=== PATIENT | female | born 1970 | race Caucasian/White ===

== ENCOUNTER 2016-11-22 09:42 | Inpatient (IN) | payer BC ==
[~2016-11-22] VITALS: Ht 162.6 cm; Wt 52.3 kg
[~2016-11-22 09:42] MED LIST: FERR325T PO
[2016-11-22] MEDS ORDERED: SODIUM CHLORIDE 0.9% 1,000 ML IV ONE (09:52)
[2016-11-22] MEDS ORDERED: PANTOPRAZOLE SODIUM 40 MG/10 ML VIAL IV STA (10:25)
[2016-11-22] MEDS ORDERED: HYDROmorphone HCL 2 MG/ML VL IV ONE (10:30)
[2016-11-22] MEDS ORDERED: ONDANSETRON HCL 4 MG/2 ML VIAL IV ONE (10:30)
[2016-11-22 11:19] LABS: Basophils # (auto) 0 uL; Basophils % (auto) 0.4 % (0.0-2.0); DEFINITIVE VIEW TRANSMISSION; Eosinophils # (auto) 0.1 uL; Eosinophils % (auto) 0.7 % (0.0-7.0); Hemoglobin 11.8 g/dL (12.2-16.2); Lymphocytes # (auto) 1.1 uL; Lymphocytes % (auto) 13.6 % (10.0-50.0); Mean Corpuscular Hemoglobin 30.9 pg (28.0-32.0); Mean Corpuscular Hgb Conc. 32.8 g/dL (32.0-36.0); Mean Corpuscular Volume 94.4 fL (80.0-100.0); Mean Platelet Volume 8.1 fL (7.4-10.4); Monocytes % (auto) 12.4 % (0.0-12.0); Neutrophils % (auto) 72.9 % (37.0-80.0); Platelet Count (auto) 277 10^3/uL (140-450); SUSPECT VIEW TRANSMISSION; White Blood Cell 8.3 10^3/uL (4.4-10.8)
[2016-11-22 11:22] LABS: Partial Thromboplastin Time 31.5 sec (22.64-33.71); Prothrombin Time 12.2 sec (9.37-12.3)
[2016-11-22 11:25] LABS: Red Cell Distribution Width 24.7 % (11.6-16.0)
[2016-11-22 11:32] LABS: Amylase 57 U/L (25-115)
[2016-11-22 11:37] LABS: Albumin 3.7 g/dL (3.4-5.0); BUN/Creatinine Ratio 25.5; Bilirubin, Total 1.8 mg/dL (0.2-1.0); Total Protein 8.1 g/dL (6.4-8.2)
[2016-11-22 11:44] LABS: INR 1.18 (0.9-1.15)
[2016-11-22 11:55] LABS: Platelet Estimate Adequate
[2016-11-22 11:56] LABS: Anisocytosis Slight
[2016-11-22 11:57] LABS: Potassium 2.8 mmol/L (3.5-5.1)
[2016-11-22] MEDS ORDERED: POTASSIUM CHL 20MEQ/100ML 100 ML IV ONE (12:15)
[2016-11-22] MEDS ORDERED: NITROGLYCERIN 0.4 MG SL TAB SL PRN (14:15)
[2016-11-22] MEDS ORDERED: PANTOPRAZOLE SODIUM 40 MG/10 ML VIAL IV ONE (14:15)
[2016-11-22] MEDS ORDERED: MORPHINE SULF INJ 2 MG/ML SYRINGE 1ML IV PRN (14:15)
[2016-11-22] MEDS ORDERED: HYDROcodone-ACET 5/325MG TAB PO PRN (14:15)
[2016-11-22] MEDS: SOD CHL 0.9%/ KCL 20MEQ 1,000 ML IV SCH ×2 (14:16→14:36)
[2016-11-22] MEDS ORDERED: POTASSIUM CHLORIDE 40 MEQ, LIDOCAINE 1% (LOCAL ANESTH.) 4 ML in SODIUM CHL 0.9% 250 ML IV ONE (14:45)
[2016-11-22 17:00] VITALS: BP 119/78
[2016-11-22] MEDS: ONDANSETRON HCL 4 MG/2 ML VIAL IV PRN (17:52)
[2016-11-22] MEDS: MORPHINE SULF INJ 2 MG/ML SYRINGE 1ML IV PRN (17:52)
[2016-11-22 20:23] LABS: Urine RBC None Seen /hpf (0 - 4)
[2016-11-22 20:55] LABS: Urine Blood Negative /uL (Negative); Urine Color Yellow (Yellow); Urine Glucose Normal (Normal); Urine Mucus MODERATE (None Seen); Urine Nitrite Negative (Negative); Urine Squamous Epithelial Cell FEW /hpf (<5); Urine Urobilinogen >12.0 mg/dL (Negative)
[2016-11-22 21:16] LABS: Urine Bilirubin Negative (Negative); Urine Ketone 3+ (Negative)
[2016-11-22] MEDS: PANTOPRAZOLE 40 MG TAB PO SCH (21:30)
[2016-11-22 22:11] VITALS: BP 100/72
[2016-11-23] MEDS: MORPHINE SULF INJ 2 MG/ML SYRINGE 1ML IV PRN ×2 (04:15→19:36)
[2016-11-23] MEDS: ONDANSETRON HCL 4 MG/2 ML VIAL IV PRN ×3 (04:24→19:35)
[2016-11-23] MEDS: SOD CHL 0.9%/ KCL 20MEQ 1,000 ML IV SCH ×2 (04:25→20:15)
[2016-11-23 05:03] VITALS: BP 114/79
[2016-11-23 06:21] LABS: BUN/Creatinine Ratio 15.4; Calcium 7.7 mg/dL (8.5-10.1); Magnesium 1.8 mg/dL (1.6-2.6); Potassium 3.8 mmol/L (3.5-5.1)
[2016-11-23 08:00] VITALS: BP 123/83
[2016-11-23 08:30] VITALS: BP 123/83
[2016-11-23] MEDS ORDERED: SODIUM CHLORIDE LOCK 10 ML ONE (08:37)
[2016-11-23] MEDS ORDERED: LIDOCAINE VISCOUS 2% 15ML UD ONE (08:37)
[2016-11-23] MEDS ORDERED: diphenhdrAMINE HCL 50 MG/1 ML VL ONE (08:37)
[2016-11-23] MEDS: PANTOPRAZOLE 40 MG TAB PO SCH ×2 (09:51→21:16)
[2016-11-23] MEDS ORDERED: PANTOPRAZOLE SODIUM 40 MG/10 ML VIAL IV SCH (10:00)
[2016-11-23] MEDS ORDERED: LEVOTHYROXINE SODIUM 100 MCG TAB PO ONE (11:45)
[2016-11-23 12:30] VITALS: BP 120/84
[2016-11-23] MEDS: MIDAZOLAM HCL 5 MG/ML-1ML VIAL ONE ×3 (12:55→13:00)
[2016-11-23] MEDS: fentaNYL CITRATE 100 MCG/2 ML VL ONE ×3 (12:55→13:00)
[2016-11-23 16:53] VITALS: BP 117/78
[2016-11-23] MEDS: ALPRAZolam 0.25 MG TAB PO SCH (21:16)
[2016-11-23 21:56] VITALS: BP 96/61
[2016-11-24] MEDS: SOD CHL 0.9%/ KCL 20MEQ 1,000 ML IV SCH (03:09)
[2016-11-24] MEDS: MORPHINE SULF INJ 2 MG/ML SYRINGE 1ML IV PRN (03:10)
[2016-11-24] MEDS: ONDANSETRON HCL 4 MG/2 ML VIAL IV PRN (03:10)
[2016-11-24 05:32] VITALS: BP 95/64
[2016-11-24] MEDS ORDERED: LEVOTHYROXINE SODIUM 100 MCG TAB PO SCH (07:00)
[2016-11-24 08:00] VITALS: BP 106/70
[2016-11-24 08:30] VITALS: BP 106/70
[2016-11-24] MEDS: ALPRAZolam 0.25 MG TAB PO SCH (09:53)
[2016-11-24] MEDS: PANTOPRAZOLE 40 MG TAB PO SCH (09:53)
[2016-11-24 12:30] VITALS: BP 99/72
== END 2016-11-24 13:45 | disposition home or self-care (01) | DRG 392 ==
LOC: ER 09:42 → TELE-E-ADS 09:43 → TELE-WESTW 18:00
PROVIDERS: ADMIT Internal Medicine; ATTEND Internal Medicine
PROC: 0DB68ZX Excision of Stomach, Via Natural or Artificial Opening Endoscopic, Diagnostic (ICD-10-PCS; principal; 2016-11-23 12:52)
DX: K29.60 Other gastritis without bleeding (principal); E03.9 Hypothyroidism, unspecified; F32.9 Major depressive disorder, single episode, unspecified; E86.0 Dehydration; K21.0 Gastro-esophageal reflux disease with esophagitis; E87.6 Hypokalemia; Z83.3 Family history of diabetes mellitus; Z90.49 Acquired absence of other specified parts of digestive tract; Z90.710 Acquired absence of both cervix and uterus; Z98.890 Other specified postprocedural states; Z79.899 Other long term (current) drug therapy
CPT/HCPCS: 36415; 43239; 80048; 80053; 81001; 81025; 82010; 82150; 83690; 83735; 84443; 85025; 85610; 85730; 94761; 96361; 96374; 96375; C9113; J2001; J2250; J2405; J3480

== ENCOUNTER → 2017-02-03 | Outpatient (CLI) | payer BC ==
[2017-02-03 12:46] LABS: Basophils # (auto) 0.1 uL; Basophils % (auto) 1.1 % (0.0-2.0); DEFINITIVE VIEW TRANSMISSION; Eosinophils # (auto) 0.1 uL; Eosinophils % (auto) 1.8 % (0.0-7.0); Hematocrit 33.3 % (36.0-46.0); Hemoglobin 11.1 g/dL (12.2-16.2); Lymphocytes # (auto) 1.4 uL; Lymphocytes % (auto) 17.9 % (10.0-50.0); Mean Corpuscular Hgb Conc. 33.4 g/dL (32.0-36.0); Mean Corpuscular Volume 98.8 fL (80.0-100.0); Mean Platelet Volume 7.2 fL (7.4-10.4); Monocytes # (auto) 0.8 uL; Monocytes % (auto) 9.8 % (0.0-12.0); Neutrophils # (auto) 5.4 uL; Neutrophils % (auto) 69.4 % (37.0-80.0); Platelet Count (auto) 254 10^3/uL (140-450); White Blood Cell 7.8 10^3/uL (4.4-10.8)
[2017-02-03 12:49] LABS: Red Cell Distribution Width 23.8 % (11.6-16.0)
[2017-02-03 12:52] LABS: Urine Blood Negative /uL (Negative); Urine Color Yellow (Yellow); Urine Glucose Normal (Normal); Urine Mucus MODERATE (None Seen); Urine Nitrite Negative (Negative); Urine RBC 1 /hpf (0 - 4); Urine Squamous Epithelial Cell FEW /hpf (<5)
[2017-02-03 13:15] LABS: Albumin 3.9 g/dL (3.4-5.0); BUN/Creatinine Ratio 19.6; Bilirubin, Total 1.4 mg/dL (0.2-1.0); Calcium 8.6 mg/dL (8.5-10.1); Potassium 3.9 mmol/L (3.5-5.1); Total Protein 7.9 g/dL (6.4-8.2)
[2017-02-03 13:33] LABS: Urine Bilirubin Negative (Negative); Urine Ketone 1+ (Negative)
[2017-02-03 15:08] LABS: Anisocytosis Slight
[2017-02-03 15:09] LABS: Platelet Estimate Adequate
== END | disposition home or self-care (01) ==
LOC: LAB 12:25
PROVIDERS: ATTEND Family Medicine
DX: K29.50 Unspecified chronic gastritis without bleeding (principal)
CPT/HCPCS: 36415; 80053; 80061; 81001; 83540; 83550; 84443; 85025

== ENCOUNTER → 2017-04-07 | Outpatient (CLI) | payer BC ==
[2017-04-07 12:52] LABS: Basophils # (auto) 0 uL; Basophils % (auto) 0.6 % (0.0-2.0); CONDITION Y; DEFINITIVE SEE PRINTOUT; Eosinophils # (auto) 0 uL; Eosinophils % (auto) 0.9 % (0.0-7.0); Hemoglobin 11.1 g/dL (12.2-16.2); Lymphocytes # (auto) 0.7 uL; Lymphocytes % (auto) 14.9 % (10.0-50.0); Mean Corpuscular Hemoglobin 35.2 pg (28.0-32.0); Mean Corpuscular Hgb Conc. 33.8 g/dL (32.0-36.0); Mean Platelet Volume 8.4 fL (7.4-10.4); Monocytes # (auto) 0.4 uL; Monocytes % (auto) 8.9 % (0.0-12.0); Neutrophils # (auto) 3.5 uL; Neutrophils % (auto) 74.7 % (37.0-80.0); Platelet Count (auto) 101 10^3/uL (140-450); White Blood Cell 4.6 10^3/uL (4.4-10.8)
[2017-04-07 13:03] LABS: INR 1.13 (0.9-1.15); Prothrombin Time 12.3 sec (9.37-12.3)
[2017-04-07 13:17] LABS: Albumin 3.8 g/dL (3.4-5.0); BUN/Creatinine Ratio 16.3; Bilirubin, Total 2.6 mg/dL (0.2-1.0); Calcium 8.3 mg/dL (8.5-10.1); Potassium 3.2 mmol/L (3.5-5.1); Total Protein 7.9 g/dL (6.4-8.2)
[2017-04-07 13:55] LABS: Anisocytosis Slight; Macrocytosis Slight; Platelet Estimate Adequate
== END | disposition home or self-care (01) ==
LOC: LAB 12:31
PROVIDERS: ATTEND Nurse Practitioner
DX: K74.60 Unspecified cirrhosis of liver (principal)
CPT/HCPCS: 36415; 80053; 82270; 85025; 85610

== ENCOUNTER 2017-05-06 05:55 | Inpatient (IN) | payer BC ==
[~2017-05-06] VITALS: Ht 162.6 cm; Wt 42.6 kg
[2017-05-06] MEDS ORDERED: SODIUM CHLORIDE 0.9% 1,000 ML IV ONE (06:30)
[2017-05-06] MEDS ORDERED: ONDANSETRON HCL 4 MG/2 ML VIAL IV ONE (06:30)
[2017-05-06 06:50] LABS: Basophils # (auto) 0.1 uL; Basophils % (auto) 1.2 % (0.0-2.0); Eosinophils # (auto) 0.1 uL; Eosinophils % (auto) 1.6 % (0.0-7.0); Hematocrit 30.2 % (36.0-46.0); Hemoglobin 10.5 g/dL (12.2-16.2); Lymphocytes # (auto) 1.2 uL; Lymphocytes % (auto) 16.3 % (10.0-50.0); Mean Corpuscular Hemoglobin 40.1 pg (28.0-32.0); Mean Corpuscular Hgb Conc. 34.6 g/dL (32.0-36.0); Mean Corpuscular Volume 115.8 fL (80.0-100.0); Mean Platelet Volume 8.1 fL (7.4-10.4); Monocytes # (auto) 0.4 uL; Monocytes % (auto) 6.1 % (0.0-12.0); Neutrophils # (auto) 5.4 uL; Neutrophils % (auto) 74.8 % (37.0-80.0); Nucleated Red Blood Cells % 0.2 %; Platelet Count (auto) 67 10^3/uL (140-450); White Blood Cell 7.2 10^3/uL (4.4-10.8)
[2017-05-06 06:58] LABS: Red Cell Distribution Width 23.1 % (11.6-16.0)
[2017-05-06 07:10] LABS: Albumin 2.7 g/dL (3.4-5.0); Anion Gap 14 (5-15); Aspartate Aminotransferase 215 U/L (15-37); BUN/Creatinine Ratio 15.6; Blood Urea Nitrogen 5 mg/dL (7-18); Calcium 8.2 mg/dL (8.5-10.1); Carbon Dioxide 20 mmol/L (21-32); Chloride 104 mmol/L (98-107); GFR African American 287 mL/min; GFR Non-African American 237 mL/min; Glucose 102 mg/dL (74-106); Magnesium 1.9 mg/dL (1.6-2.6); Potassium 3.3 mmol/L (3.5-5.1); Sodium 138 mmol/L (136-145)
[2017-05-06 07:15] LABS: Alkaline Phosphatase 305 U/L (45-117); Bilirubin, Total 9.2 mg/dL (0.2-1.0)
[2017-05-06 08:04] LABS: Anisocytosis Slight; Macrocytosis Marked; Platelet Estimate Decreased
[2017-05-06] MEDS ORDERED: POTASSIUM CHL 10% (20 MEQ/15ML) 15ml ORAL SOLN PO ONE (08:30)
[2017-05-06] MEDS ORDERED: FERROUS SULFATE 300 MG/5 ML ORAL LIQ GT ONE (08:30)
[2017-05-06 08:32] LABS: Urine Blood Negative /uL (Negative); Urine Color Yellow (Yellow); Urine Glucose Normal (Normal); Urine Ketone 2+ (Negative); Urine Mucus FEW (None Seen); Urine Nitrite Negative (Negative); Urine RBC <1 /hpf (0 - 4); Urine Squamous Epithelial Cell FEW /hpf (<5)
[2017-05-06 08:34] LABS: Urine Bilirubin 2+ (Negative)
[2017-05-06] MEDS ORDERED: SODIUM CHLORIDE 0.9% 1,000 ML IV SCH (09:23)
[2017-05-06] MEDS ORDERED: TEMAZEPAM 15 MG CAP PO PRN (09:30)
[2017-05-06] MEDS ORDERED: chlordiazePOXIDE HCL 5 MG CAP PO PRN (09:30)
[2017-05-06] MEDS ORDERED: cefTRIAXone 1GM/50ML D5W 50 ML IV ONE (09:30)
[2017-05-06] MEDS ORDERED: MORPHINE SULFATE 4 MG/ML SYRG IV PRN (09:30)
[2017-05-06] MEDS ORDERED: NITROGLYCERIN 0.4 MG SL TAB SL PRN (09:30)
[2017-05-06] MEDS ORDERED: LACTULOSE 20Gm/30ML SOLN PO PRN (09:30)
[2017-05-06] MEDS ORDERED: THIAMINE HCL 100 MG/ML 2ML VIAL IV ONE (09:30)
[2017-05-06] MEDS ORDERED: MORPHINE SULF INJ 2 MG/ML SYRINGE 1ML IV PRN (09:30)
[2017-05-06] MEDS ORDERED: PANTOPRAZOLE 40 MG TAB PO SCH ×2 (10:00→22:00)
[2017-05-06] MEDS ORDERED: ENOXAPARIN SOD 40 MG/0.4 ML SYRINGE SC SCH (10:00)
[2017-05-06] MEDS ORDERED: ENOXAPARIN SOD 30 MG/0.3 ML SYRINGE SC SCH (10:00)
[2017-05-06] MEDS: PROMETHAZINE HCL 25 MG/ML 1ML IV PRN ×3 (11:07→20:50)
[2017-05-06 12:02] LABS: INR 1.22 (0.9-1.15); Partial Thromboplastin Time 32.5 sec (22.64-33.71); Prothrombin Time 13.3 sec (9.37-12.3)
[2017-05-06] MEDS ORDERED: ONDA4TAB5 PO (13:23)
[2017-05-06] MEDS ORDERED: LEVO125T66 PO (13:23)
[2017-05-06 13:24] VITALS: BP 106/67
[2017-05-06 13:27] LABS: Hematocrit 27.9 % (36.0-46.0); Hemoglobin 9.4 g/dL (12.2-16.2)
[2017-05-06] MEDS ORDERED: IOHEXOL 300 MG/ML 100ML BOTTLE IJ ONE (15:05)
[2017-05-06 16:47] VITALS: BP 107/65
[2017-05-06] MEDS: SODIUM CHLORIDE 0.9% 1,000 ML IV SCH (18:50)
[2017-05-06 20:00] VITALS: BP 103/66
[2017-05-06] MEDS: PANTOPRAZOLE 40 MG/10 ML VIAL IV SCH (22:00)
[2017-05-06] MEDS: metroNIDAZOLE 500MG/100ML 100 ML IV SCH (22:00)
[2017-05-07 01:52] LABS: Hematocrit 25.5 % (36.0-46.0); Hemoglobin 8.6 g/dL (12.2-16.2)
[2017-05-07] MEDS: SODIUM CHLORIDE 0.9% 1,000 ML IV SCH ×4 (04:45→21:30)
[2017-05-07 04:47] VITALS: BP 106/66
[2017-05-07 05:31] LABS: Basophils # (auto) 0.1 uL; Basophils % (auto) 1.1 % (0.0-2.0); Eosinophils # (auto) 0 uL; Eosinophils % (auto) 0.5 % (0.0-7.0); Hematocrit 24.1 % (36.0-46.0); Hemoglobin 8.4 g/dL (12.2-16.2); Lymphocytes % (auto) 15.7 % (10.0-50.0); Mean Corpuscular Hemoglobin 41.3 pg (28.0-32.0); Mean Corpuscular Volume 117.9 fL (80.0-100.0); Mean Platelet Volume 8.8 fL (7.4-10.4); Monocytes # (auto) 0.5 uL; Monocytes % (auto) 7.6 % (0.0-12.0); Neutrophils # (auto) 4.8 uL; Neutrophils % (auto) 75.1 % (37.0-80.0); Nucleated Red Blood Cells % 0.3 %; Platelet Count (auto) 50 10^3/uL (140-450); White Blood Cell 6.4 10^3/uL (4.4-10.8)
[2017-05-07 05:50] LABS: INR 1.34 (0.9-1.15); Partial Thromboplastin Time 33.5 sec (22.64-33.71); Prothrombin Time 14.7 sec (9.37-12.3)
[2017-05-07] MEDS: metroNIDAZOLE 500MG/100ML 100 ML IV SCH ×3 (05:59→21:57)
[2017-05-07] MEDS: PROMETHAZINE HCL 25 MG/ML 1ML IV PRN (05:59)
[2017-05-07 06:09] LABS: Albumin 2.1 g/dL (3.4-5.0); BUN/Creatinine Ratio 6.7; Bilirubin, Total 11.2 mg/dL (0.2-1.0); Calcium 6.8 mg/dL (8.5-10.1); Total Protein 5.7 g/dL (6.4-8.2)
[2017-05-07 06:12] LABS: Potassium 2.7 mmol/L (3.5-5.1)
[2017-05-07 06:27] LABS: Red Cell Distribution Width 21.8 % (11.6-16.0)
[2017-05-07] MEDS: MORPHINE SULF INJ 2 MG/ML SYRINGE 1ML IV PRN ×3 (08:01→17:31)
[2017-05-07 08:24] LABS: Anisocytosis Slight; Macrocytosis Slight; Platelet Estimate Decreased; Tear Drop Cells FEW
[2017-05-07] MEDS ORDERED: cefTRIAXone 1GM/50ML D5W 50 ML IV SCH (09:00)
[2017-05-07] MEDS: PANTOPRAZOLE 40 MG/10 ML VIAL IV SCH ×2 (09:18→21:57)
[2017-05-07] MEDS: cefTRIAXone 1GM/50ML D5W 50 ML IV SCH (09:18)
[2017-05-07] MEDS: THIAMINE HCL 100 MG/ML 2ML VIAL IV SCH (09:19)
[2017-05-07 09:23] VITALS: BP 100/65
[2017-05-07] MEDS ORDERED: POTASSIUM CHLORIDE 40 MEQ, LIDOCAINE 1% (LOCAL ANESTH.) 4 ML in SODIUM CHL 0.9% 250 ML IV ONE (10:15)
[2017-05-07 11:27] LABS: Hematocrit 23.6 % (36.0-46.0); Hemoglobin 8.2 g/dL (12.2-16.2)
[2017-05-07 12:43] VITALS: BP 94/61
[2017-05-07 16:43] VITALS: BP 99/60
[2017-05-07 21:37] VITALS: BP 99/62
[2017-05-08] MEDS: SODIUM CHLORIDE 0.9% 1,000 ML IV SCH ×3 (03:36→17:30)
[2017-05-08 05:02] VITALS: BP 101/67
[2017-05-08 05:47] LABS: BUN/Creatinine Ratio 7.1; Calcium 6.6 mg/dL (8.5-10.1)
[2017-05-08] MEDS: metroNIDAZOLE 500MG/100ML 100 ML IV SCH ×3 (05:59→21:40)
[2017-05-08 06:04] LABS: Bilirubin, Total 14.1 mg/dL (0.2-1.0); Total Protein 5.4 g/dL (6.4-8.2)
[2017-05-08 06:15] LABS: Potassium 2.9 mmol/L (3.5-5.1)
[2017-05-08] MEDS ORDERED: POTASSIUM CHL 20 Meq TABLET PO ONE (06:30)
[2017-05-08 08:00] VITALS: BP 90/63
[2017-05-08] MEDS: cefTRIAXone 1GM/50ML D5W 50 ML IV SCH (08:56)
[2017-05-08] MEDS: PANTOPRAZOLE 40 MG/10 ML VIAL IV SCH ×2 (08:57→21:41)
[2017-05-08] MEDS: THIAMINE HCL 100 MG/ML 2ML VIAL IV SCH (08:57)
[2017-05-08 09:05] VITALS: BP 91/62
[2017-05-08 13:00] VITALS: BP 94/59
[2017-05-08 17:00] VITALS: BP 92/58
[2017-05-08] MEDS: POTASSIUM CHL 20 Meq TABLET PO SCH (21:41)
[2017-05-08 22:00] VITALS: BP 99/69
[2017-05-09] VITALS (7 sets, daily range): BP systolic 92–120; BP diastolic 58–80
[2017-05-09] MEDS: LORazepam 0.5 MG TAB PO PRN (05:07)
[2017-05-09] MEDS: SODIUM CHLORIDE 0.9% 1,000 ML IV SCH ×3 (05:07→14:02)
[2017-05-09] MEDS: metroNIDAZOLE 500MG/100ML 100 ML IV SCH ×2 (06:08→14:03)
[2017-05-09 06:57] LABS: Basophils # (auto) 0.1 uL; Eosinophils # (auto) 0.1 uL; Eosinophils % (auto) 1.6 % (0.0-7.0); Hematocrit 24.9 % (36.0-46.0); Hemoglobin 8.7 g/dL (12.2-16.2); Lymphocytes # (auto) 0.7 uL; Mean Corpuscular Hemoglobin 42.6 pg (28.0-32.0); Mean Corpuscular Volume 121.8 fL (80.0-100.0); Mean Platelet Volume 8.3 fL (7.4-10.4); Monocytes # (auto) 0.7 uL; Neutrophils # (auto) 6.2 uL; Neutrophils % (auto) 79.4 % (37.0-80.0); Nucleated Red Blood Cells % 0.2 %; Platelet Count (auto) 102 10^3/uL (140-450); White Blood Cell 7.8 10^3/uL (4.4-10.8)
[2017-05-09 07:20] LABS: Albumin 1.9 g/dL (3.4-5.0); Bilirubin, Total 14.8 mg/dL (0.2-1.0); Calcium 6.5 mg/dL (8.5-10.1); Total Protein 5.2 g/dL (6.4-8.2)
[2017-05-09 07:23] LABS: Potassium 2.8 mmol/L (3.5-5.1)
[2017-05-09 08:11] LABS: Platelet Estimate Decreased
[2017-05-09 08:13] LABS: Polychromasia Slight
[2017-05-09 08:14] LABS: Anisocytosis Moderate; Macrocytosis Marked; Tear Drop Cells FEW
[2017-05-09 08:16] LABS: Stomatocytes Few
[2017-05-09] MEDS: PANTOPRAZOLE 40 MG/10 ML VIAL IV SCH ×2 (09:06→22:00)
[2017-05-09] MEDS: cefTRIAXone 1GM/50ML D5W 50 ML IV SCH (09:06)
[2017-05-09] MEDS: POTASSIUM CHL 20 Meq TABLET PO SCH ×3 (09:06→22:00)
[2017-05-09] MEDS: THIAMINE HCL 100 MG/ML 2ML VIAL IV SCH (09:07)
[2017-05-09] MEDS: NutriHep 250 mL Bottle PO SCH (18:01)
[2017-05-10] MEDS ORDERED: HALOPERIDOL LACTATE 5 MG/ML INJ VIAL IM ONE (00:45)
[2017-05-10] MEDS: POTASSIUM CHL 20 Meq TABLET PO SCH ×3 (02:58→14:10)
[2017-05-10] MEDS: LORazepam 0.5 MG TAB PO PRN ×2 (02:58→14:12)
[2017-05-10 05:32] VITALS: BP 123/81
[2017-05-10] MEDS: NutriHep 250 mL Bottle PO SCH ×3 (14:12→17:06)
[2017-05-10] MEDS: PANTOPRAZOLE 40 MG/10 ML VIAL IV SCH ×2 (14:22→22:00)
[2017-05-10] MEDS: THIAMINE HCL 100 MG/ML 2ML VIAL IV SCH (14:22)
[2017-05-10] MEDS ORDERED: POTA20TA53 PO (14:35)
[2017-05-10] MEDS ORDERED: LACT10SO3 PO (14:35)
[2017-05-10] MEDS ORDERED: PANT40TA2 PO (14:35)
[2017-05-10] MEDS ORDERED: MULTTAB61 PO (14:35)
[2017-05-10] MEDS ORDERED: LACTULOSE 20Gm/30ML SOLN PO SCH (14:45)
[2017-05-10] MEDS: LACTULOSE 20Gm/30ML SOLN PO SCH (20:45)
[2017-05-10 22:00] VITALS: BP 103/76
[2017-05-11] MEDS ORDERED: HALOPERIDOL LACTATE 5 MG/ML INJ VIAL IM ONE ×2 (00:45→02:45)
[2017-05-11] MEDS: LACTULOSE 20Gm/30ML SOLN PO SCH ×2 (02:45→08:45)
[2017-05-11] MEDS ORDERED: LORazepam 2MG/ML-1ML VIAL IV ONE (02:45)
[2017-05-11 05:00] VITALS: BP 93/58
[2017-05-11] MEDS: NutriHep 250 mL Bottle PO SCH (08:00)
[2017-05-11] MEDS: THIAMINE HCL 100 MG/ML 2ML VIAL IV SCH (09:57)
[2017-05-11] MEDS: PANTOPRAZOLE 40 MG/10 ML VIAL IV SCH (09:58)
== END 2017-05-11 10:57 | disposition home or self-care (01) | DRG 432 ==
LOC: ER 05:55 → TELE 05:56 → TELE-WESTW 12:37
PROVIDERS: ADMIT Internal Medicine; ATTEND Internal Medicine
DX: K70.30 Alcoholic cirrhosis of liver without ascites (principal); K85.20 Alcohol induced acute pancreatitis without necrosis or infection; E43 Unspecified severe protein-calorie malnutrition; G93.41 Metabolic encephalopathy; D68.9 Coagulation defect, unspecified; D69.6 Thrombocytopenia, unspecified; Z68.1 Body mass index [BMI] 19.9 or less, adult; F10.20 Alcohol dependence, uncomplicated; F32.9 Major depressive disorder, single episode, unspecified; K59.00 Constipation, unspecified; G47.00 Insomnia, unspecified; K76.89 Other specified diseases of liver; Z53.29 Procedure and treatment not carried out because of patient's decision for other reasons; E03.9 Hypothyroidism, unspecified; E87.6 Hypokalemia; D64.9 Anemia, unspecified; Z90.49 Acquired absence of other specified parts of digestive tract; Z83.3 Family history of diabetes mellitus; Z82.49 Family history of ischemic heart disease and other diseases of the circulatory system; Z90.710 Acquired absence of both cervix and uterus; Z79.899 Other long term (current) drug therapy; Z80.8 Family history of malignant neoplasm of other organs or systems
CPT/HCPCS: 36415; 71010; 74178; 76705; 80053; 81001; 82140; 82150; 82248; 82378; 83690; 83735; 84132; 84484; 85014; 85018; 85025; 85045; 85610; 85652; 85730; 86141; 86850; 86900; 86901; 87086; 93005; 96361; 96372; 96374; 96375; C9113; J0696; J2001; J2405; J3490

== ENCOUNTER 2017-06-06 10:17 | Inpatient (IN) | payer BC ==
[~2017-06-06] VITALS: Ht 162.6 cm; Wt 48.5 kg
[~2017-06-06 10:17] MED LIST changes: -FERR325T PO; +LACT10SO3 PO; +LACT10SO32 PO; +MULTTAB61 PO; +ONDA4TAB5 PO; +PANT40TA2 PO; +POTA20TA53 PO
[2017-06-06] MEDS ORDERED: SODIUM CHLORIDE 0.9% 1,000 ML IV ONE ×2 (10:57)
[2017-06-06] MEDS ORDERED: MORPHINE SULF INJ 2 MG/ML SYRINGE 1ML IV ONE (11:00)
[2017-06-06] MEDS ORDERED: cefTRIAXone 1GM/50ML D5W 50 ML IV ONE (11:00)
[2017-06-06] MEDS ORDERED: ONDANSETRON HCL 4 MG/2 ML VIAL IV ONE (11:00)
[2017-06-06 11:17] LABS: Eosinophils # (auto) 0.2 uL; Monocytes # (auto) 1.1 uL
[2017-06-06 11:18] LABS: Basophils # (auto) 0.1 uL; Basophils % (auto) 0.5 % (0.0-2.0); Eosinophils % (auto) 0.9 % (0.0-7.0); Hematocrit 34.4 % (36.0-46.0); Hemoglobin 11.8 g/dL (12.2-16.2); Lymphocytes # (auto) 1.6 uL; Lymphocytes % (auto) 7.3 % (10.0-50.0); Mean Corpuscular Hemoglobin 40.9 pg (28.0-32.0); Mean Corpuscular Hgb Conc. 34.3 g/dL (32.0-36.0); Mean Corpuscular Volume 119.3 fL (80.0-100.0); Mean Platelet Volume 7.2 fL (6.9-10.8); Monocytes % (auto) 4.9 % (0.0-12.0); Neutrophils # (auto) 19.2 uL; Neutrophils % (auto) 86.4 % (37.0-80.0); Nucleated Red Blood Cells % 0.2 %; Platelet Count (auto) 287 10^3/uL (140-450); Red Cell Distribution Width 17.3 % (11.8-14.3); White Blood Cell 22.2 10^3/uL (4.4-10.8)
[2017-06-06 11:36] LABS: Albumin 1.6 g/dL (3.4-5.0); Alkaline Phosphatase 239 U/L (45-117); Anion Gap 9 (5-15); Aspartate Aminotransferase 154 U/L (15-37); Bilirubin, Total 12.1 mg/dL (0.2-1.0); Blood Urea Nitrogen 14 mg/dL (7-18); Calcium 7.5 mg/dL (8.5-10.1); Carbon Dioxide 20 mmol/L (21-32); Chloride 103 mmol/L (98-107); GFR African American 136 mL/min; GFR Non-African American 113 mL/min; Glucose 105 mg/dL (74-106); Potassium 4.3 mmol/L (3.5-5.1); Sodium 132 mmol/L (136-145); Total Protein 6.4 g/dL (6.4-8.2)
[2017-06-06 11:39] LABS: Burr Cells FEW; Platelet Estimate Adequate
[2017-06-06 11:42] LABS: Macrocytosis Marked
[2017-06-06] MEDS ORDERED: PANTOPRAZOLE 40 MG/10 ML VIAL IV ONE (12:15)
[2017-06-06] MEDS ORDERED: ONDANSETRON HCL 4 MG/2 ML VIAL IV PRN (12:15)
[2017-06-06 12:18] LABS: INR 1.95 (0.9-1.15); Partial Thromboplastin Time 53.4 sec (22.64-33.71); Prothrombin Time 21.4 sec (9.37-12.3); Temperature: 21.8 C (20.0-25.0)
[2017-06-06] MEDS ORDERED: THIAMINE HCL 100 MG/ML 2ML VIAL IV ONE (12:45)
[2017-06-06] MEDS: ALBUMIN 25% 50 ML IV SCH ×2 (13:55→22:01)
[2017-06-06] MEDS ORDERED: PHYTONADIONE (VIT K)10 MG/ML 1ML VIAL SUBCUT ONE (14:45)
[2017-06-06] MEDS: FUROSEMIDE 20 MG TAB PO SCH (14:45)
[2017-06-06] MEDS: SPIRONOLACTONE 25 MG TAB PO SCH (14:45)
[2017-06-06 17:30] VITALS: BP 95/62
[2017-06-06] MEDS: PIPERACILLIN-TAZOB 2.25GM 50 ML IV SCH ×2 (18:00→23:31)
[2017-06-06 18:12] VITALS: BP 95/62
[2017-06-06 22:00] VITALS: BP 97/63
[2017-06-07 05:06] VITALS: BP 96/60
[2017-06-07] MEDS: ALBUMIN 25% 50 ML IV SCH ×3 (05:30→22:36)
[2017-06-07] MEDS: PIPERACILLIN-TAZOB 2.25GM 50 ML IV SCH ×3 (06:09→18:21)
[2017-06-07 08:00] VITALS: BP 90/49
[2017-06-07] MEDS: SPIRONOLACTONE 25 MG TAB PO SCH (10:00)
[2017-06-07] MEDS ORDERED: PANTOPRAZOLE 40 MG/10 ML VIAL IV SCH (10:00)
[2017-06-07] MEDS: FUROSEMIDE 20 MG TAB PO SCH (10:00)
[2017-06-07] MEDS: THIAMINE HCL 100 MG/ML 2ML VIAL IV SCH (10:48)
[2017-06-07] MEDS: MORPHINE SULF INJ 2 MG/ML SYRINGE 1ML IV PRN ×3 (10:49→19:10)
[2017-06-07 12:00] VITALS: BP 88/56
[2017-06-07] MEDS ORDERED: LEVOTHYROXINE SODIUM 50 MCG TAB PO ONE (13:45)
[2017-06-07 14:26] LABS: Body Fluid Polymorphonuclear 36 %
[2017-06-07 16:47] VITALS: BP 89/53
[2017-06-07 21:52] VITALS: BP 90/60
[2017-06-08] MEDS: PIPERACILLIN-TAZOB 2.25GM 50 ML IV SCH ×2 (00:14→06:27)
[2017-06-08 05:09] VITALS: BP 93/55
[2017-06-08] MEDS: ALBUMIN 25% 50 ML IV SCH ×3 (05:31→22:00)
[2017-06-08 06:26] LABS: Basophils # (auto) 0 uL; Basophils % (auto) 0.2 % (0.0-2.0); Eosinophils # (auto) 0.3 uL; Hemoglobin 9.8 g/dL (12.2-16.2); Lymphocytes # (auto) 1.1 uL; Mean Corpuscular Hgb Conc. 34.5 g/dL (32.0-36.0); Mean Platelet Volume 7.3 fL (6.9-10.8)
[2017-06-08] MEDS: LEVOTHYROXINE SODIUM 50 MCG TAB PO SCH (06:27)
[2017-06-08 06:29] LABS: Hematocrit 28.4 % (36.0-46.0); Mean Corpuscular Hemoglobin 41.3 pg (28.0-32.0); Mean Corpuscular Volume 119.8 fL (80.0-100.0); Monocytes # (auto) 0.9 uL; Monocytes % (auto) 5.7 % (0.0-12.0); Neutrophils # (auto) 13.9 uL; Neutrophils % (auto) 85.1 % (37.0-80.0); Platelet Count (auto) 199 10^3/uL (140-450); Red Cell Distribution Width 17.5 % (11.8-14.3); White Blood Cell 16.3 10^3/uL (4.4-10.8)
[2017-06-08 06:37] LABS: Potassium 3.5 mmol/L (3.5-5.1)
[2017-06-08 06:45] LABS: Albumin 2.1 g/dL (3.4-5.0); BUN/Creatinine Ratio 24.4; Calcium 7.4 mg/dL (8.5-10.1)
[2017-06-08 06:48] LABS: Bilirubin, Total 9.6 mg/dL (0.2-1.0); Total Protein 5.2 g/dL (6.4-8.2)
[2017-06-08 07:47] LABS: Macrocytosis Slight; Platelet Estimate Adequate
[2017-06-08 09:00] VITALS: BP 91/60
[2017-06-08] MEDS: FUROSEMIDE 20 MG TAB PO SCH (09:43)
[2017-06-08] MEDS: PANTOPRAZOLE 40 MG TAB PO SCH (09:43)
[2017-06-08] MEDS: SPIRONOLACTONE 25 MG TAB PO SCH (09:44)
[2017-06-08] MEDS: THIAMINE HCL 100 MG/ML 2ML VIAL IV SCH (09:44)
[2017-06-08] MEDS ORDERED: FUROSEMIDE 20 MG TAB PO SCH ×2 (10:00)
[2017-06-08] MEDS: BOOST PLUS 8 ounce PO SCH ×2 (11:58→18:13)
[2017-06-08 12:37] VITALS: BP 91/53
[2017-06-08 16:41] VITALS: BP 90/58
[2017-06-08] MEDS: NutriHep 250 mL Bottle PO SCH (18:13)
[2017-06-08] MEDS: PRO-STAT 64 30ML PO SCH (18:14)
[2017-06-08 20:07] LABS: Albumin, Body Fluid 0.4 g/dL (.)
[2017-06-08 22:17] VITALS: BP 91/59
[2017-06-09] VITALS (7 sets, daily range): BP systolic 91–98; BP diastolic 54–67
[2017-06-09] MEDS: ALBUMIN 25% 50 ML IV SCH (06:07)
[2017-06-09 06:28] LABS: Basophils # (auto) 0 uL; Basophils % (auto) 0.2 % (0.0-2.0); Eosinophils # (auto) 0.2 uL; Mean Platelet Volume 7.5 fL (6.9-10.8); Neutrophils # (auto) 13.4 uL; White Blood Cell 15.9 10^3/uL (4.4-10.8)
[2017-06-09] MEDS: LEVOTHYROXINE SODIUM 50 MCG TAB PO SCH (06:28)
[2017-06-09 06:34] LABS: Eosinophils % (auto) 1.3 % (0.0-7.0); Hematocrit 29.5 % (36.0-46.0); Hemoglobin 10.2 g/dL (12.2-16.2); Lymphocytes # (auto) 1.2 uL; Lymphocytes % (auto) 7.4 % (10.0-50.0); Mean Corpuscular Hemoglobin 41.2 pg (28.0-32.0); Mean Corpuscular Hgb Conc. 34.6 g/dL (32.0-36.0); Monocytes # (auto) 1.1 uL; Monocytes % (auto) 6.6 % (0.0-12.0); Neutrophils % (auto) 84.5 % (37.0-80.0); Platelet Count (auto) 186 10^3/uL (140-450); Red Cell Distribution Width 17.3 % (11.8-14.3)
[2017-06-09] MEDS: NutriHep 250 mL Bottle PO SCH ×2 (08:00→18:00)
[2017-06-09] MEDS: BOOST PLUS 8 ounce PO SCH (08:00)
[2017-06-09] MEDS: PRO-STAT 64 30ML PO SCH ×2 (08:00→18:00)
[2017-06-09] MEDS: cefTRIAXone 1GM/50ML D5W 50 ML IV SCH (09:10)
[2017-06-09] MEDS: PANTOPRAZOLE 40 MG TAB PO SCH (09:49)
[2017-06-09] MEDS: MULTIPLE VITAMIN TAB PO SCH (09:49)
[2017-06-09] MEDS: FUROSEMIDE 20 MG TAB PO SCH (09:50)
[2017-06-09] MEDS: THIAMINE HCL 100 MG TAB PO SCH (09:50)
[2017-06-09] MEDS ORDERED: SPIRONOLACTONE 25 MG TAB PO SCH (10:00)
[2017-06-09] MEDS: LACTULOSE 20Gm/30ML SOLN PO SCH ×2 (12:27→18:42)
[2017-06-10] MEDS: LACTULOSE 20Gm/30ML SOLN PO SCH ×4 (00:34→18:34)
[2017-06-10 04:49] VITALS: BP 96/60
[2017-06-10 05:16] LABS: Basophils # (auto) 0 uL; Basophils % (auto) 0.2 % (0.0-2.0); Eosinophils # (auto) 0.2 uL; Lymphocytes # (auto) 1.2 uL; Monocytes # (auto) 1.1 uL; Monocytes % (auto) 6.7 % (0.0-12.0)
[2017-06-10 05:19] LABS: Eosinophils % (auto) 1.1 % (0.0-7.0); Hematocrit 30.7 % (36.0-46.0); Hemoglobin 10.5 g/dL (12.2-16.2); Lymphocytes % (auto) 7.1 % (10.0-50.0); Mean Corpuscular Hemoglobin 40.7 pg (28.0-32.0); Mean Corpuscular Hgb Conc. 34.3 g/dL (32.0-36.0); Mean Corpuscular Volume 118.8 fL (80.0-100.0); Mean Platelet Volume 7.2 fL (6.9-10.8); Neutrophils # (auto) 14.1 uL; Neutrophils % (auto) 84.9 % (37.0-80.0); Platelet Count (auto) 211 10^3/uL (140-450); Red Cell Distribution Width 17.7 % (11.8-14.3); White Blood Cell 16.6 10^3/uL (4.4-10.8)
[2017-06-10 05:36] LABS: Calcium 7.9 mg/dL (8.5-10.1); Potassium 3.6 mmol/L (3.5-5.1)
[2017-06-10 05:40] LABS: Albumin 2.7 g/dL (3.4-5.0)
[2017-06-10 05:53] LABS: Bilirubin, Total 9.3 mg/dL (0.2-1.0); Total Protein 6.3 g/dL (6.4-8.2)
[2017-06-10] MEDS: LEVOTHYROXINE SODIUM 50 MCG TAB PO SCH (06:43)
[2017-06-10] MEDS: PRO-STAT 64 30ML PO SCH ×2 (08:00→18:00)
[2017-06-10] MEDS: NutriHep 250 mL Bottle PO SCH ×2 (08:00→18:00)
[2017-06-10 09:00] VITALS: BP 97/63
[2017-06-10] MEDS: PANTOPRAZOLE 40 MG TAB PO SCH (09:04)
[2017-06-10] MEDS: THIAMINE HCL 100 MG TAB PO SCH (09:04)
[2017-06-10] MEDS: MULTIPLE VITAMIN TAB PO SCH (09:04)
[2017-06-10] MEDS: cefTRIAXone 1GM/50ML D5W 50 ML IV SCH (09:04)
[2017-06-10] MEDS: FUROSEMIDE 20 MG TAB PO SCH (09:05)
[2017-06-10 13:00] VITALS: BP 99/66
[2017-06-10 17:00] VITALS: BP 99/61
[2017-06-10 17:21] LABS: Urine Blood Negative /uL (Negative); Urine Color Brown (Yellow); Urine Glucose Normal (Normal); Urine Ketone Negative (Negative); Urine Mucus FEW (None Seen); Urine Nitrite Negative (Negative); Urine RBC <1 /hpf (0 - 4); Urine Squamous Epithelial Cell FEW /hpf (<5); Urine Urobilinogen Normal (Negative); Urine pH 5.5 (5.0-8.0)
[2017-06-10 17:34] LABS: Urine Bilirubin 3+ (Negative)
[2017-06-10 20:00] VITALS: BP 88/54
[2017-06-10 22:00] VITALS: BP 88/54
[2017-06-11] MEDS: LACTULOSE 20Gm/30ML SOLN PO SCH ×3 (01:08→11:58)
[2017-06-11 05:00] VITALS: BP 96/66
[2017-06-11 05:59] LABS: Basophils # (auto) 0 uL; Basophils % (auto) 0.2 % (0.0-2.0); Eosinophils # (auto) 0.2 uL; Hemoglobin 10.3 g/dL (12.2-16.2); Lymphocytes # (auto) 1.7 uL; Nucleated Red Blood Cells % 0.1 %
[2017-06-11 06:03] LABS: Eosinophils % (auto) 1.3 % (0.0-7.0); Hematocrit 29.9 % (36.0-46.0); Lymphocytes % (auto) 9.3 % (10.0-50.0); Mean Corpuscular Hemoglobin 41.1 pg (28.0-32.0); Mean Corpuscular Hgb Conc. 34.4 g/dL (32.0-36.0); Mean Corpuscular Volume 119.4 fL (80.0-100.0); Mean Platelet Volume 7.2 fL (6.9-10.8); Monocytes # (auto) 1.6 uL; Monocytes % (auto) 8.8 % (0.0-12.0); Neutrophils % (auto) 80.4 % (37.0-80.0); Platelet Count (auto) 188 10^3/uL (140-450); White Blood Cell 18.6 10^3/uL (4.4-10.8)
[2017-06-11] MEDS: LEVOTHYROXINE SODIUM 50 MCG TAB PO SCH (06:27)
[2017-06-11 06:43] LABS: Albumin 2.5 g/dL (3.4-5.0); BUN/Creatinine Ratio 23.8; Calcium 7.6 mg/dL (8.5-10.1); Magnesium 2.6 mg/dL (1.6-2.6); Potassium 4.2 mmol/L (3.5-5.1); Total Protein 6.2 g/dL (6.4-8.2)
[2017-06-11 07:56] VITALS: BP 99/64
[2017-06-11 08:00] VITALS: BP 99/64
[2017-06-11] MEDS: NutriHep 250 mL Bottle PO SCH (08:00)
[2017-06-11] MEDS: PRO-STAT 64 30ML PO SCH (08:00)
[2017-06-11] MEDS: MULTIPLE VITAMIN TAB PO SCH (09:28)
[2017-06-11] MEDS: THIAMINE HCL 100 MG TAB PO SCH (09:28)
[2017-06-11] MEDS: cefTRIAXone 1GM/50ML D5W 50 ML IV SCH (09:28)
[2017-06-11] MEDS: FUROSEMIDE 20 MG TAB PO SCH (09:29)
[2017-06-11] MEDS: PANTOPRAZOLE 40 MG TAB PO SCH (09:29)
[2017-06-11 12:25] VITALS: BP 105/68
[2017-06-11 12:54] VITALS: BP 105/68
== END 2017-06-11 13:53 | disposition home or self-care (01) | DRG 432 ==
LOC: ER 10:17 → OVERFLOW 10:18 → WEST WING 17:50
PROVIDERS: ADMIT Internal Medicine; ATTEND Internal Medicine
PROC: 0W9G3ZZ Drainage of Peritoneal Cavity, Percutaneous Approach (ICD-10-PCS; principal; 2017-06-07)
DX: K70.31 Alcoholic cirrhosis of liver with ascites (principal); E43 Unspecified severe protein-calorie malnutrition; K72.90 Hepatic failure, unspecified without coma; F10.988 Alcohol use, unspecified with other alcohol-induced disorder; Z68.1 Body mass index [BMI] 19.9 or less, adult; E03.9 Hypothyroidism, unspecified; I10 Essential (primary) hypertension; F32.9 Major depressive disorder, single episode, unspecified; Z83.3 Family history of diabetes mellitus
CPT/HCPCS: 36415; 71010; 74176; 76705; 76942; 80053; 81001; 82140; 83605; 83735; 83880; 84443; 84484; 85025; 85610; 85730; 87040; 87081; 87086; 87205; 89051; 96361; 96365; 96372; 96375; 97163; C9113; J0696; J2405; J2543; J3430

== ENCOUNTER → 2017-07-01 | Outpatient (CLI) | payer BC ==
[~2017-07-01] MED LIST changes: -LACT10SO32 PO
[2017-07-01 12:50] LABS: Basophils # (auto) 0.1 uL; Eosinophils # (auto) 0.2 uL; Eosinophils % (auto) 2.1 % (0.0-7.0); Mean Corpuscular Volume 115.9 fL (80.0-100.0); Monocytes # (auto) 0.6 uL; Monocytes % (auto) 8.1 % (0.0-12.0)
[2017-07-01 12:52] LABS: Hematocrit 32.8 % (36.0-46.0); Hemoglobin 11.4 g/dL (12.2-16.2); Lymphocytes # (auto) 1.8 uL; Lymphocytes % (auto) 24.5 % (10.0-50.0); Mean Corpuscular Hemoglobin 40.3 pg (28.0-32.0); Mean Corpuscular Hgb Conc. 34.7 g/dL (32.0-36.0); Neutrophils # (auto) 4.8 uL; Neutrophils % (auto) 64.3 % (37.0-80.0); Platelet Count (auto) 199 10^3/uL (140-450); Red Blood Cells 2.83 10^6/uL (4.0-5.20); Red Cell Distribution Width 16.2 % (11.8-14.3); White Blood Cell 7.4 10^3/uL (4.4-10.8)
[2017-07-01 13:02] LABS: INR 1.45 (0.9-1.15); Partial Thromboplastin Time 42.4 sec (22.64-33.71); Prothrombin Time 15.9 sec (9.37-12.3)
[2017-07-01 13:39] LABS: Albumin 2.8 g/dL (3.4-5.0); Bilirubin, Total 7.9 mg/dL (0.2-1.0); Calcium 9.7 mg/dL (8.5-10.1); Potassium 4.4 mmol/L (3.5-5.1); Total Protein 8.1 g/dL (6.4-8.2)
[2017-07-04 10:31] LABS: Hepatitis B Surface Antibody Negative
[2017-07-04 10:40] LABS: Hepatitis B Surface Antigen Negative (Negative)
[2017-07-04 11:06] LABS: Hepatitis C Antibody Negative (Negative)
[2017-07-04 11:07] LABS: Hepatitis A Total Antibody Negative; Hepatitis B Core Total AB Negative
== END | disposition home or self-care (01) ==
LOC: LAB 11:43
PROVIDERS: ATTEND Internal Medicine Gastroenterology
DX: D64.9 Anemia, unspecified (principal); E03.9 Hypothyroidism, unspecified; K70.9 Alcoholic liver disease, unspecified; K29.50 Unspecified chronic gastritis without bleeding
CPT/HCPCS: 36415; 80053; 82150; 85025; 85610; 85730; 86704; 86706; 86708; 86803; 87340

== ENCOUNTER → 2017-07-20 | Outpatient (CLI) | payer BC ==
[2017-07-20 12:55] LABS: Basophils # (auto) 0 uL; Eosinophils # (auto) 0.1 uL; Lymphocytes # (auto) 1.9 uL; Monocytes # (auto) 0.4 uL
[2017-07-20 12:57] LABS: Basophils % (auto) 0.4 % (0.0-2.0); Eosinophils % (auto) 1.9 % (0.0-7.0); Hematocrit 28.3 % (36.0-46.0); Lymphocytes % (auto) 31.6 % (10.0-50.0); Mean Corpuscular Hemoglobin 39.5 pg (28.0-32.0); Mean Corpuscular Hgb Conc. 35.3 g/dL (32.0-36.0); Mean Corpuscular Volume 111.7 fL (80.0-100.0); Mean Platelet Volume 6.9 fL (6.9-10.8); Monocytes % (auto) 7.6 % (0.0-12.0); Neutrophils # (auto) 3.5 uL; Neutrophils % (auto) 58.5 % (37.0-80.0); Platelet Count (auto) 141 10^3/uL (140-450); Red Cell Distribution Width 13.6 % (11.8-14.3); White Blood Cell 5.9 10^3/uL (4.4-10.8)
[2017-07-20 13:10] LABS: INR 1.38 (0.9-1.15); Prothrombin Time 15.1 sec (9.37-12.3)
[2017-07-20 17:05] LABS: BUN/Creatinine Ratio 21.9; Potassium 4.4 mmol/L (3.5-5.1)
[2017-07-20 17:06] LABS: Bilirubin, Total 6.5 mg/dL (0.2-1.0); Calcium 10.7 mg/dL (8.5-10.1); Total Protein 7.6 g/dL (6.4-8.2)
== END | disposition home or self-care (01) ==
LOC: LAB 12:19
PROVIDERS: ATTEND Family Medicine
DX: K70.31 Alcoholic cirrhosis of liver with ascites (principal); E46 Unspecified protein-calorie malnutrition
CPT/HCPCS: 36415; 80053; 85025; 85610

== ENCOUNTER → 2017-08-12 | Outpatient (CLI) | payer BC ==
[2017-08-12 12:55] LABS: Basophils # (auto) 0 uL; Basophils % (auto) 0.7 % (0.0-2.0); Eosinophils # (auto) 0.1 uL; Hemoglobin 9.7 g/dL (12.2-16.2); Lymphocytes # (auto) 1.4 uL; Mean Corpuscular Hemoglobin 40.3 pg (28.0-32.0); Monocytes # (auto) 0.2 uL; Neutrophils # (auto) 3.3 uL
[2017-08-12 12:56] LABS: Eosinophils % (auto) 2.2 % (0.0-7.0); Hematocrit 27.8 % (36.0-46.0); Lymphocytes % (auto) 28.1 % (10.0-50.0); Mean Corpuscular Hgb Conc. 34.9 g/dL (32.0-36.0); Mean Corpuscular Volume 115.3 fL (80.0-100.0); Mean Platelet Volume 6.4 fL (6.9-10.8); Monocytes % (auto) 3.4 % (0.0-12.0); Neutrophils % (auto) 65.6 % (37.0-80.0); Platelet Count (auto) 157 10^3/uL (140-450); Red Cell Distribution Width 18.3 % (11.8-14.3)
[2017-08-12 13:12] LABS: INR 1.44 (0.9-1.15); Prothrombin Time 15.8 sec (9.37-12.3)
[2017-08-12 13:29] LABS: Platelet Estimate Adequate
[2017-08-12 13:31] LABS: Burr Cells MODERATE; Macrocytosis Moderate; Schistocytes FEW
[2017-08-12 13:40] LABS: Albumin 2.1 g/dL (3.4-5.0); Bilirubin, Total 6.8 mg/dL (0.2-1.0)
== END | disposition home or self-care (01) ==
LOC: LAB 12:28
PROVIDERS: ATTEND Family Medicine
DX: K70.30 Alcoholic cirrhosis of liver without ascites (principal); E78.5 Hyperlipidemia, unspecified
CPT/HCPCS: 36415; 80076; 84443; 85025; 85610

== ENCOUNTER → 2017-08-31 | Outpatient (CLI) | payer BC ==
[2017-08-31 11:44] LABS: Basophils # (auto) 0 uL; Eosinophils # (auto) 0 uL; Eosinophils % (auto) 0.7 % (0.0-7.0); Hematocrit 29.4 % (36.0-46.0); Hemoglobin 10.4 g/dL (12.2-16.2); Lymphocytes # (auto) 1.3 uL; Monocytes # (auto) 0.3 uL; Nucleated Red Blood Cells % 0.1 %
[2017-08-31 11:45] LABS: Basophils % (auto) 0.2 % (0.0-2.0); Mean Corpuscular Hemoglobin 39.1 pg (28.0-32.0); Mean Corpuscular Hgb Conc. 35.5 g/dL (32.0-36.0); Mean Corpuscular Volume 109.9 fL (80.0-100.0); Monocytes % (auto) 5.7 % (0.0-12.0); Neutrophils # (auto) 3.9 uL; Neutrophils % (auto) 70.4 % (37.0-80.0); Red Blood Cells 2.67 10^6/uL (4.0-5.20); Red Cell Distribution Width 14.4 % (11.8-14.3); White Blood Cell 5.6 10^3/uL (4.4-10.8)
[2017-08-31 11:57] LABS: INR 1.75 (0.9-1.15); Partial Thromboplastin Time 39.6 sec (22.64-33.71); Prothrombin Time 19.2 sec (9.37-12.3)
[2017-08-31 12:41] LABS: Platelet Count (auto) 210 10^3/uL (140-450)
== END | disposition home or self-care (01) ==
LOC: US 10:48
PROVIDERS: ATTEND Family Medicine
DX: K70.31 Alcoholic cirrhosis of liver with ascites (principal)
CPT/HCPCS: 36415; 76705; 85025; 85610; 85730

== ENCOUNTER 2017-09-16 16:33 | Inpatient (IN) | payer BC ==
[~2017-09-16] VITALS: Ht 162.6 cm; Wt 36.3 kg
[2017-09-16 17:42] LABS: Basophils # (auto) 0 uL; Eosinophils # (auto) 0.1 uL; Monocytes # (auto) 0.4 uL
[2017-09-16 17:51] LABS: Basophils % (auto) 0.3 % (0.0-2.0); Eosinophils % (auto) 1.1 % (0.0-7.0); Hematocrit 28.5 % (36.0-46.0); Lymphocytes # (auto) 1.9 uL; Lymphocytes % (auto) 20.1 % (10.0-50.0); Mean Corpuscular Hemoglobin 37.6 pg (28.0-32.0); Mean Corpuscular Volume 107.6 fL (80.0-100.0); Monocytes % (auto) 4.2 % (0.0-12.0); Neutrophils # (auto) 7.1 uL; Neutrophils % (auto) 74.3 % (37.0-80.0); Nucleated Red Blood Cells % 0.1 %; Platelet Count (auto) 160 10^3/uL (140-450); Red Blood Cells 2.65 10^6/uL (4.0-5.20); Red Cell Distribution Width 13.4 % (11.8-14.3); White Blood Cell 9.5 10^3/uL (4.4-10.8)
[2017-09-16 18:07] LABS: Alanine Aminotransferase 46 U/L (13-56); Albumin 1.9 g/dL (3.4-5.0); Alkaline Phosphatase 210 U/L (45-117); Amylase 45 U/L (25-115); Anion Gap 9 (5-15); Aspartate Aminotransferase 63 U/L (15-37); BUN/Creatinine Ratio 10.7; Bilirubin, Total 10.2 mg/dL (0.2-1.0); Blood Urea Nitrogen 9 mg/dL (7-18); Calcium 8.3 mg/dL (8.5-10.1); Carbon Dioxide 32 mmol/L (21-32); Chloride 90 mmol/L (98-107); GFR African American 94 mL/min; GFR Non-African American 78 mL/min; Glucose 132 mg/dL (74-106); Lipase 111 U/L (73-393); Sodium 131 mmol/L (136-145); Total Protein 6.6 g/dL (6.4-8.2)
[2017-09-16 18:12] LABS: Potassium 2.2 mmol/L (3.5-5.1)
[2017-09-16] MEDS ORDERED: TEMAZEPAM 15 MG CAP PO PRN (18:45)
[2017-09-16] MEDS ORDERED: SPIRONOLACTONE 25 MG TAB PO ONE (18:45)
[2017-09-16] MEDS ORDERED: SOD CHL 0.9%/ KCL 40MEQ 1,000 ML IV ONE (18:45)
[2017-09-16] MEDS ORDERED: POTASSIUM CHL 20 Meq TABLET PO ONE (18:45)
[2017-09-16] MEDS ORDERED: PROMETHAZINE HCL 25 MG/ML 1ML IV PRN (18:45)
[2017-09-16] MEDS ORDERED: LACTULOSE 20Gm/30ML SOLN PO PRN (18:45)
[2017-09-16] MEDS ORDERED: NITROGLYCERIN 0.4 MG SL TAB SL PRN (18:45)
[2017-09-16] MEDS ORDERED: MORPHINE SULFATE 10 MG/ML INJ 1ML SDV IV PRN ×3 (18:45)
[2017-09-16] MEDS ORDERED: LORazepam 0.5 MG TAB PO PRN (18:45)
[2017-09-16] MEDS: SOD CHL 0.9%/ KCL 40MEQ 1,000 ML IV SCH (19:03)
[2017-09-16] MEDS: POTASSIUM CHL 20MEQ/100ML 100 ML IV SCH ×2 (20:55→23:29)
[2017-09-16 22:00] VITALS: BP 95/62
[2017-09-16] MEDS: FAMOTIDINE 20 MG TAB PO SCH (22:00)
[2017-09-16] MEDS: LACTULOSE 20Gm/30ML SOLN PO SCH (22:00)
[2017-09-16] MEDS ORDERED: LACTULOSE 20Gm/30ML SOLN PO SCH (22:00)
[2017-09-16 22:42] LABS: INR 2.03 (0.9-1.15); Partial Thromboplastin Time 48.3 sec (22.64-33.71); Prothrombin Time 22.3 sec (9.37-12.3)
[2017-09-17] MEDS: POTASSIUM CHL 20MEQ/100ML 100 ML IV SCH ×2 (00:45→01:18)
[2017-09-17] MEDS: SOD CHL 0.9%/ KCL 40MEQ 1,000 ML IV SCH ×3 (03:20→16:47)
[2017-09-17] MEDS: LACTULOSE 20Gm/30ML SOLN PO SCH ×4 (04:00→22:00)
[2017-09-17 05:51] VITALS: BP 85/47
[2017-09-17] MEDS: SPIRONOLACTONE 25 MG TAB PO SCH ×2 (06:00→18:50)
[2017-09-17 07:14] LABS: Albumin 1.7 g/dL (3.4-5.0); Potassium 3.8 mmol/L (3.5-5.1)
[2017-09-17 07:16] LABS: BUN/Creatinine Ratio 15.1
[2017-09-17 07:31] LABS: Bilirubin, Total 8.8 mg/dL (0.2-1.0); Total Protein 5.8 g/dL (6.4-8.2)
[2017-09-17 09:00] VITALS: BP 83/55
[2017-09-17] MEDS: FAMOTIDINE 20 MG TAB PO SCH ×2 (10:25→22:42)
[2017-09-17] MEDS: ENOXAPARIN SOD 30 MG/0.3 ML SYRINGE SC SCH (10:26)
[2017-09-17 13:00] VITALS: BP_SYST 133; BP_SYST 86; BP_DIAS 55; BP_DIAS 72
[2017-09-17] MEDS ORDERED: SODIUM CHLORIDE 0.9% 1,000 ML IV ONE (14:00)
[2017-09-17] MEDS: ALBUMIN 25% 100 ML IV SCH ×2 (16:46→18:50)
[2017-09-17 17:35] VITALS: BP 84/55
[2017-09-17] MEDS ORDERED: ALBUMIN 25% 100 ML IV ONE (18:30)
[2017-09-17 22:00] VITALS: BP 91/59
[2017-09-18] MEDS: SOD CHL 0.9%/ KCL 40MEQ 1,000 ML IV SCH (03:20)
[2017-09-18] MEDS: LACTULOSE 20Gm/30ML SOLN PO SCH ×2 (04:28→10:31)
[2017-09-18] MEDS: SPIRONOLACTONE 25 MG TAB PO SCH (04:29)
[2017-09-18 05:23] VITALS: BP 89/57
[2017-09-18 06:58] LABS: Albumin 2.5 g/dL (3.4-5.0); BUN/Creatinine Ratio 11.9; Bilirubin, Total 8.3 mg/dL (0.2-1.0); Calcium 7.9 mg/dL (8.5-10.1); Potassium 3.9 mmol/L (3.5-5.1); Total Protein 5.6 g/dL (6.4-8.2)
[2017-09-18 07:02] LABS: Basophils # (auto) 0 uL; Hemoglobin 8.5 g/dL (12.2-16.2); Lymphocytes # (auto) 2.3 uL; Monocytes # (auto) 0.5 uL; Nucleated Red Blood Cells % 0.1 %
[2017-09-18 07:04] LABS: Basophils % (auto) 0.2 % (0.0-2.0); Eosinophils # (auto) 0.1 uL; Hematocrit 23.7 % (36.0-46.0); Lymphocytes % (auto) 32.5 % (10.0-50.0); Mean Corpuscular Hemoglobin 38.8 pg (28.0-32.0); Mean Corpuscular Volume 107.7 fL (80.0-100.0); Monocytes % (auto) 7.1 % (0.0-12.0); Neutrophils # (auto) 4.1 uL; Neutrophils % (auto) 58.2 % (37.0-80.0); Platelet Count (auto) 119 10^3/uL (140-450); White Blood Cell 7.1 10^3/uL (4.4-10.8)
[2017-09-18 09:00] VITALS: BP 94/63
[2017-09-18] MEDS: FAMOTIDINE 20 MG TAB PO SCH (10:31)
[2017-09-18] MEDS: ENOXAPARIN SOD 30 MG/0.3 ML SYRINGE SC SCH (10:31)
[2017-09-18 13:00] VITALS: BP 92/57
[2017-09-18 13:02] VITALS: BP 92/57
== END 2017-09-18 14:05 | disposition home or self-care (01) | DRG 314 ==
LOC: ER 16:35 → TELE 16:36 → TELE-WESTW 19:55
PROVIDERS: ADMIT Internal Medicine; ATTEND Internal Medicine
DX: I95.9 Hypotension, unspecified (principal); E43 Unspecified severe protein-calorie malnutrition; Z76.82 Awaiting organ transplant status; K76.6 Portal hypertension; E72.4 Disorders of ornithine metabolism; Z94.4 Liver transplant status; K70.31 Alcoholic cirrhosis of liver with ascites; D63.8 Anemia in other chronic diseases classified elsewhere; E11.9 Type 2 diabetes mellitus without complications; Z68.1 Body mass index [BMI] 19.9 or less, adult; R53.1 Weakness; E03.9 Hypothyroidism, unspecified; E87.6 Hypokalemia; F32.9 Major depressive disorder, single episode, unspecified; Z82.49 Family history of ischemic heart disease and other diseases of the circulatory system; Z83.3 Family history of diabetes mellitus; Z90.710 Acquired absence of both cervix and uterus
CPT/HCPCS: 36415; 71045; 74176; 80053; 80320; 82140; 82150; 83690; 84484; 85025; 85610; 85730; 93005; 96365; J3480

== ENCOUNTER → 2017-09-16 | Outpatient (CLI) | payer BC ==
[2017-09-16 13:39] LABS: Basophils # (auto) 0 uL; Basophils % (auto) 0.2 % (0.0-2.0); Eosinophils # (auto) 0.1 uL; Eosinophils % (auto) 1.3 % (0.0-7.0); Hemoglobin 10.3 g/dL (12.2-16.2); Lymphocytes # (auto) 2.6 uL; Lymphocytes % (auto) 24.8 % (10.0-50.0); Mean Corpuscular Hgb Conc. 35.5 g/dL (32.0-36.0); Mean Corpuscular Volume 107.2 fL (80.0-100.0); Monocytes # (auto) 0.4 uL; Neutrophils # (auto) 7.3 uL; Neutrophils % (auto) 69.7 % (37.0-80.0); Platelet Count (auto) 174 10^3/uL (140-450); Red Blood Cells 2.71 10^6/uL (4.0-5.20); Red Cell Distribution Width 13.3 % (11.8-14.3); White Blood Cell 10.5 10^3/uL (4.4-10.8)
[2017-09-16 14:02] LABS: INR 1.86 (0.9-1.15); Prothrombin Time 20.4 sec (9.37-12.3)
[2017-09-16 14:06] LABS: Albumin 1.9 g/dL (3.4-5.0); BUN/Creatinine Ratio 10.7; Bilirubin, Total 10.5 mg/dL (0.2-1.0); Calcium 8.1 mg/dL (8.5-10.1); Total Protein 6.7 g/dL (6.4-8.2)
[2017-09-16 14:45] LABS: Potassium 2.1 mmol/L (3.5-5.1)
== END | disposition home or self-care (01) ==
LOC: LAB 13:12
PROVIDERS: ATTEND Internal Medicine Gastroenterology
DX: K70.9 Alcoholic liver disease, unspecified (principal); K70.31 Alcoholic cirrhosis of liver with ascites
CPT/HCPCS: 36415; 80053; 85025; 85610